=== PATIENT | female | born 1965 | race African-American/Black ===

== ENCOUNTER → 2016-05-14 | Outpatient (CLI) | payer OTHER ==
[~2016-05-14] MED LIST: ACCUNEB SO1.25 MG/1 INH; ALBUTEROL2.5 MG/0.5 INH; ALPRAZOLAM 0.50.5 M1 PO; AMITRIPTYLINE H25 M2 PO; CLONIDINE0.1 PO; COLACE100 MG PO; FENTANYL PA50 MCG/HR TRANSDERM; FLONASE 0.05%50 MCG NASAL; LEVEMIR SUBQ; LEVOTHYROXINE 0.15MG PO; LOPRESSOR50 PO; METOCLOPRAMID5 MG/ML IV PUSH; NEURONTIN 300300 M1 PO; NEURONTIN600 MG PO; NOVOLOG100 UNIT/1 SUBQ; NYSTATIN 1100000 U/M PO; OXYCODONE H5 MG/5 ML PO; REGLAN 10 MG TA10 MG PO; SENOKOT-S1 TA1 PO; SINGULAIR 10 MG10 M1 PO; ZANTAC 150MG T150 MG PO; ZOFRAN ODT4 MG PO
--- NOTE | ~2016-05-14 | EKG ---
[place] [address] [address] [place] [address] ELECTROCARDIOGRAM REPORT Name: LAVERNE DIAZ [id number] Admission: 05/14/16 Attend Phys: Dilip Morocho MD, F Discharge: Date of : 65 Report #: [id number] THIS REPORT FOR: //name// [facility] Test Date: 2016-05-14 Test Time: 14:15:53 Pat Name: LAVERNE PAIZ Department: Room: Gender: F Insurance Claims Supervisor: Maryam JAIN : 1965 Requested By: Dilip Morocho Order Number: [id number] MD: Flynn Reyes Measurements Intervals [place] Rate: 78 P: 18 LA: 186 QRS: -18 QRSD: 112 T: 36 QT: 399 QTc: 455 Interpretive Statements Sinus rhythm Probable left ventricular hypertrophy No previous ECG available for comparison Electronically Signed On 05-14-2016 17:25:54 [employer]RE INSPECTOR by Flynn Reyes [email or web address] <ELECTRONICALLY SIGNED> By: Flynn Reyes MD 05/14/16 1725 1415 1415 MD LO [place]
[2016-05-14 14:23] LABS: CALCIUM 9.3 mg/dL (8.5-10.1); CREATININE 1.5 mg/dL (0.6-1.3); POTASSIUM 4.5 mmol/L (3.5-5.1)
[2016-05-14 14:30] LABS: ALBUMIN 3.5 g/dL (3.4-5.0); TOTAL BILIRUBIN 0.3 mg/dL (<0.1-1.0); TOTAL PROTEIN 8.3 g/dL (6.4-8.2)
[2016-05-14 14:32] LABS: ABSOLUTE NEUTROPHILS 6.1 thou/uL (1.4-8.2); BASOPHILS 0.9 % (0.0-2.0); EOSINOPHILS 2.9 % (0.0-3.0); HEMATOCRIT 43.8 % (37.0-47.0); HEMOGLOBIN 13.5 gm/dL (12.0-15.0); LYMPHOCYTES 27.7 % (24.0-44.0); MCH 26.5 pg (26.0-34.0); MCHC 30.9 % (28.0-37.0); MCV 85.9 fL (80.0-100.0); MONOCYTES 6.8 % (1.0-8.0); PLATELET COUNT 231 thou/uL (150-400); POLYS 61.7 % (36.0-66.0); RDW 16.2 % (10.5-14.5); WBC 9.9 thou/uL (4.0-11.0)
[2016-05-14 14:33] LABS: MANUAL DIFF NO
[2016-05-14 14:58] LABS: ANISOCYTOSIS 1+
== END ==
LOC: LAB 12:11
PROVIDERS: Surgery
DX: G47.30 Sleep apnea, unspecified (principal); I51.7 Cardiomegaly; R06.02 Shortness of breath; E66.9 Obesity, unspecified; E66.01 Morbid (severe) obesity due to excess calories

== ENCOUNTER → 2016-12-27 | Outpatient (CLI) | payer OTHER ==
[2016-12-27 09:30] LABS: ABG SAMPLE TYPE ARTERIAL; BE(vivo) 2.3 mmol/L (-2 to +3); LACTATE 1.13 mmol/L (0.5-2.0); O2(CT) 16.9 mL/dL (15.0-23.0); O2Hb 97.5 % (92.0-98.0); PCO2 32.8 mmHg (35.0-45.0); STICK SITE L.RADIAL; sO2 98.7 % (92.0-98.0)
[2016-12-28 03:15] LABS: GLYCOHEMOGLOBIN (HGB A1C) 5.7 % (4.8-5.6)
== END ==
LOC: LABMALL 08:35
PROVIDERS: Internal Medicine Critical Care Medicine
DX: I10 Essential (primary) hypertension (principal); J44.9 Chronic obstructive pulmonary disease, unspecified; J45.909 Unspecified asthma, uncomplicated; E11.9 Type 2 diabetes mellitus without complications; G47.33 Obstructive sleep apnea (adult) (pediatric); E03.9 Hypothyroidism, unspecified

== ENCOUNTER 2017-01-04 09:50 | Emergency (ER) | payer OTHER ==
[~2017-01-04] VITALS: Ht 160 cm; Wt 158.8 kg
[2017-01-04 10:39] LABS: ABSOLUTE NEUTROPHILS 5.7 thou/uL (1.4-8.2); BASOPHILS 0.7 % (0.0-2.0); EOSINOPHILS 1.7 % (0.0-3.0); HEMATOCRIT 36.5 % (37.0-47.0); HEMOGLOBIN 11.9 gm/dL (12.0-15.0); LYMPHOCYTES 18.4 % (24.0-44.0); MCH 25.5 pg (26.0-34.0); MCHC 32.6 g/dL (28.0-37.0); MCV 78.4 fL (80.0-100.0); MONOCYTES 6.8 % (1.0-8.0); PLATELET COUNT 251 thou/uL (150-400); POLYS 72.4 % (36.0-66.0); RBC 4.65 mil/uL (4.20-5.00); RDW 18.5 % (10.5-14.5); WBC 7.8 thou/uL (4.0-11.0)
[2017-01-04 10:43] LABS: MANUAL DIFF NO
[2017-01-04 10:52] LABS: CALCIUM 9.1 mg/dL (8.5-10.1); CREATININE 1.2 mg/dL (0.6-1.0)
[2017-01-04 10:58] LABS: ALBUMIN 3.1 g/dL (3.4-5.0); TOTAL BILIRUBIN 0.4 mg/dL (<0.1-1.0); TOTAL PROTEIN 7.3 g/dL (6.4-8.2)
[2017-01-04] MEDS ORDERED: SENNA8.6 MG PO (12:41)
== END 2017-01-04 13:30 | disposition home or self-care (01) ==
LOC: ER 09:50
PROVIDERS: Physician Assistant
DX: K59.00 Constipation, unspecified (principal); I10 Essential (primary) hypertension; K21.9 Gastro-esophageal reflux disease without esophagitis; J45.909 Unspecified asthma, uncomplicated; G47.30 Sleep apnea, unspecified; E03.9 Hypothyroidism, unspecified; E11.621 Type 2 diabetes mellitus with foot ulcer; Z88.1 Allergy status to other antibiotic agents; Z91.040 Latex allergy status; Z91.018 Allergy to other foods; Z88.8 Allergy status to other drugs, medicaments and biological substances; Z88.6 Allergy status to analgesic agent